=== PATIENT | female | born 1975 | race Caucasian/White ===

== ENCOUNTER 2017-09-12 16:21 | Emergency (ER) | payer OTHER ==
[~2017-09-12] VITALS: Ht 149.9 cm; Wt 45.4 kg
[2017-09-12 16:26] VITALS: BP 137/92
--- NOTE | 2017-09-12 16:33 | NUR ---
AFTER PROVIDING URINE SAMPLE PT AMBULATES BACK TO THE LOBBY
--- NOTE | 2017-09-12 17:00 | NUR ---
ASSUMED CARE OF PT AT THIS TIME. C/O VAGINAL ITCHING W/ D/C X 1 WEEK. AAOX4 WITH EVEN AND STEADY GAIT; PATIENT STATES PAIN OF 0/10 AT THIS TIME; VSS; PATIENT POSITIONED FOR COMFORT; HOB ELEVATED; BEDRAILS UP X2; BED DOWN. ER MD MADE AWARE OF PT STATUS. WILL CONTINUE TO MONITOR.
--- NOTE | 2017-09-12 17:00 | NUR ---
PT AMBULATES TO BED 4
[2017-09-12 17:40] LABS: APPEARANCE,URINE CLEAR (CLEAR); BILIRUBIN,URINE NEGATIVE (NEGATIVE); BLOOD, URINE TRACE-I (NEGATIVE); COLOR,URINE YELLOW (YELLOW); LEUKOCYTE ESTERASE ,URINE TRACE (NEGATIVE); NITRITE, URINE NEGATIVE (NEGATIVE); UGLUCOSE NEGATIVE (NEGATIVE)
[2017-09-12 17:42] LABS: RBC,URINE 3-10 (FEW) /HPF (0-5)
[2017-09-12] MEDS ORDERED: AZITHROMYCIN 250 MG TAB PO ONE (19:25)
[2017-09-12] MEDS ORDERED: cefTRIAXone 250 MG in LIDOCAINE MPF 1% - **ER/OR** 0.9 ML IM ONE (19:25)
[2017-09-12 20:00] VITALS: BP 128/84
--- NOTE | 2017-09-12 20:00 | NUR ---
Patient discharged with v/s stable. Written and verbal after care instructions given and explained. Patient verbalized understanding. Ambulatory with steady gait. All questions addressed prior to discharge. Advised to follow up with PMD.
[2017-09-16 06:20] LABS: CHLAMYDIA TRACHOMATIS AMP DNA Negative (Negative)
== END 2017-09-12 20:00 | disposition other institution (70) ==
LOC: MED 16:21
DX: N89.8 Other specified noninflammatory disorders of vagina (principal)
CPT/HCPCS: 36415; 81001; 81025; 87086; 87210; 96372; 99284; J0696; J2001; 87491